=== PATIENT | male | born 1960 | race Caucasian/White ===

== ENCOUNTER 2017-10-06 18:10 | Inpatient (IN) | payer OTHER ==
[~2017-10-06] VITALS: Ht 172.7 cm; Wt 122.5 kg
[~2017-10-06 18:10] MED LIST: ALDACTONE25 MG PO; ALLOPURINOL 10100 M1 PO; ASPIRIN81 M2 PO; ATORVASTATIN CA40 MG PO; ATORVASTATIN CA80 MG PO; BAYER CHEWABLE81 MG PO; CARVEDILOL12.5 MG PO; CARVEDILOL3.125 MG PO; CARVEDILOL6.25 MG PO; COLACE100 MG PO; COUMADIN 5 MG TA5 M1 PO; COZAAR 50 MG TA50 M2 PO; EFFIENT10 MG PO; ELIQUIS5 MG PO; ENOXAPARIN100 MG/11 SUBQ; ENOXAPARIN150 MG/11 SUBQ; FLORANEX TABLE1 EACH PO; INVOKANA300 MG PO; LEVAQUIN 500 M500 M2 PO; LEVAQUIN 750 M750 MG PO; LISINOPRIL10 MG PO; MEPHYTON 5 MG TA5 M1 PO; METOPROLOL SUCC25 M1 PO; MIRALAX17 GM PO; MUCINEX TA600 MG/TA2 PO; NICOTINE TRANSD14 M1 TD; NITROGLYCERIN0.4 MG SL; PACERONE 200 M200 M1 PO; PLAVIX 75 MG TA75 M1 PO; PREDNISONE 10 M10 MG PO; PREDNISONE 20 M20 M1 PO; PROAIR HFA8.5 GM INH; PROTONIX 20 MG20 M1 PO; TYLENOL325 MG PO; VENTOLIN HFA 1818 GM INH; ZESTRIL10 MG PO; ZPAK PO
[2017-10-06 18:18] VITALS: BP 137/72
[2017-10-06 19:41] LABS: INFLUENZA A ANTIGEN None Detected (None Detect); INFLUENZA B ANTIGEN None Detected (None Detect)
[2017-10-06] MEDS ORDERED: PROAIR HFA8.5 GM INH (19:47)
[2017-10-06] MEDS ORDERED: LEVAQUIN 500 M500 M2 PO (19:47)
[2017-10-06] MEDS ORDERED: PREDNISONE 20 M20 MG PO (19:47)
[2017-10-06 20:17] LABS: HEMATOCRIT 44.8 % (42.0-52.0); HEMOGLOBIN 15.5 gm/dL (14.0-18.0); MCH 31.3 pg (26.0-34.0); MCHC 34.7 g/dL (28.0-37.0); MCV 90.4 fL (80.0-100.0); MPV 8.5 fl. (7.2-11.1); NUCLEATED RBCS 0 /100WBC; PLATELET COUNT* 154 thou/uL (150-400); RBC 4.96 mil/uL (4.50-6.00); WBC 6.5 thou/uL (4.0-11.0)
[2017-10-06 20:30] LABS: ANION GAP 9 mmol/L (7-16); BUN 16 mg/dL (7-18); CALCIUM 8.6 mg/dL (8.5-10.1); CHLORIDE 101 mmol/L (98-107); CO2 27 mmol/L (21-32); CREATININE 1.3 mg/dL (0.6-1.3); GLUCOSE 115 mg/dL (70-99); POTASSIUM 3.8 mmol/L (3.5-5.1); SODIUM 137 mmol/L (136-145)
[2017-10-06 20:37] LABS: ABSOLUTE LYMPHOCYTES 0.3 thou/uL (0.8-5.3); ABSOLUTE MONOCYTES 0.7 thou/uL (0.0-1.2); ABSOLUTE NEUTROPHILS 5.6 thou/uL (1.6-8.1); ATYPICAL LYMPHS 2 %; PLATELET ESTIMATE ADEQUATE
[2017-10-06 20:42] LABS: ALBUMIN 3.5 g/dL (3.4-5.0); ALKALINE PHOSPHATASE 65 U/L (46-116); NT-PRO BRAIN NAT PEPTIDE 1239 pg/mL (<300); SGOT 21 U/L (15-37); SGPT 19 U/L (30-65); TOTAL BILIRUBIN 0.5 mg/dL (<0.1-1.0); TOTAL PROTEIN 7.2 g/dL (6.4-8.2); TROPONIN-I LEVEL <0.06 ng/mL (<0.06)
[2017-10-06 22:03] VITALS: BP 95/45
[2017-10-06 22:30] VITALS: BP 107/52
[2017-10-07 03:35] VITALS: BP 94/45
--- NOTE | 2017-10-07 06:01 | NUR ---
PATIENT ARRIVED ON FLOOR FROM ER ABOUT 5. PATIENT ADMISSION HISTORY AND ASSESSMENT WAS COMPLETED CHARTED. IV FLUIDS WERE STARTED AT 100 ML/HR. PATIENT HAS BEEN AFEBRILE SINCE ARRIVAL TO FLOOR. PATIENT IS ON OXYGEN AT 3L SATTING 94-95%. WILL CONTINUE TO MONITOR.
[2017-10-07 07:50] VITALS: BP 118/76
--- NOTE | 2017-10-07 14:21 | NUR ---
CM ASSESSMENT: Pt is A&O. Resides at home with his sig other. Independent with ADLs, continues to work FT outside of the home. Hx of home o2. No hx of HH or SNF. Supportive family that is invovled in POC. Dr Mitchell wrote for a home neb, faxed referral to D[facility] at [facility], they will deliver tomorrow. Updated nurse. Anticipate dc to home tomorrow. Following.
[2017-10-07 14:23] VITALS: BP 118/76
[2017-10-07 15:53] VITALS: BP 100/53
--- NOTE | 2017-10-07 17:44 | NUR ---
PATIENT A&OX4, ON 3L O2 VIA NC, IV RIGHT AC FLUIDS INFUSSING WITH IV ABX. UP AD CARLTON, STEADY GIAT. NO C/O PAIN/N/V. FLU SHOT GIVEN THIS A.M. NO OTHER CONCERNS AT THIS TIME. APPROPRIATE AND COOPORATIVE WITH CARE.
[2017-10-08] VITALS: BP 110/62
[2017-10-08 04:39] LABS: ABSOLUTE LYMPHOCYTES 0.8 thou/uL (0.8-5.3); ABSOLUTE MONOCYTES 0.4 thou/uL (0.0-1.2); ABSOLUTE NEUTROPHILS 10.6 thou/uL (1.6-8.1); BASOPHILS 0.2 %; EOSINOPHILS 0.1 %; HEMATOCRIT 45.4 % (42.0-52.0); HEMOGLOBIN 15.2 gm/dL (14.0-18.0); MCH 30.9 pg (26.0-34.0); MCHC 33.4 g/dL (28.0-37.0); MCV 92.4 fL (80.0-100.0); MONOCYTES 3.6 %; MPV 8.8 fl. (7.2-11.1); NUCLEATED RBCS 0 /100WBC; PLATELET COUNT* 135 thou/uL (150-400); POLYS 89.1 %; RBC 4.92 mil/uL (4.50-6.00); RDW-CV 13.7 % (10.5-14.5); WBC 11.9 thou/uL (4.0-11.0)
[2017-10-08 05:11] LABS: CALCIUM 8.7 mg/dL (8.5-10.1); MAGNESIUM 2.3 mg/dL (1.8-2.4); POTASSIUM 4.3 mmol/L (3.5-5.1); TOTAL BILIRUBIN 0.2 mg/dL (<0.1-1.0); TOTAL PROTEIN 6.8 g/dL (6.4-8.2)
--- NOTE | 2017-10-08 06:04 | NUR ---
PATIENT SLEPT MOST OF THE NIGHT. IV FLUIDS CONTINUE AT 100 ML/HR. PATIENT REMAINS ON OXYGEN AT 1.5L SATTING 93%. PATIENT IS POSSIBLY GOING HOME TODAY. WILL CONTINUE TO MONITOR.
[2017-10-08 08:05] VITALS: BP 121/71
--- NOTE | 2017-10-08 16:31 | NUR ---
PATIENT A&OX4, ON 1.5L O2 VIA NC, IV RIGHT AC SALINE LOCK WITH ABX. UP AD CARLTON, STEADY GAIT. NO C/O PIAN/N/V. NO OTHER CONCERNS AT THIS TIME. APPROPRIATE AND COOPORATIVE WITH CARE.
[2017-10-08 16:34] VITALS: BP 103/53
[2017-10-08 23:38] VITALS: BP 114/54
[2017-10-09 04:36] LABS: HEMATOCRIT 46.2 % (42.0-52.0); HEMOGLOBIN 15.6 gm/dL (14.0-18.0); MCH 30.9 pg (26.0-34.0); MCHC 33.7 g/dL (28.0-37.0); MCV 91.8 fL (80.0-100.0); MPV 8.6 fl. (7.2-11.1); RBC 5.03 mil/uL (4.50-6.00); RDW-CV 14.1 % (10.5-14.5); WBC 14.2 thou/uL (4.0-11.0)
[2017-10-09 04:58] LABS: ALBUMIN 3.2 g/dL (3.4-5.0); CALCIUM 8.8 mg/dL (8.5-10.1); CREATININE 1.1 mg/dL (0.6-1.3); TOTAL BILIRUBIN 0.3 mg/dL (<0.1-1.0); TOTAL PROTEIN 6.6 g/dL (6.4-8.2)
--- NOTE | 2017-10-09 05:40 | NUR ---
PATIENT SLEPT MOST OF THE NIGHT. PATIENT IS NOW ON ROOM AIR. IV REMAINS SALINE LOCKED. PATIENT IS POSSIBLSY GOING HOME TODAY. WILL CONTINUE TO MONITOR.
[2017-10-09 09:00] VITALS: BP 127/61
--- NOTE | 2017-10-09 11:47 | NUR ---
Nutrition: Pt seen for BMI >40. Possible discharge home today. Pt stated his appetite/intake are good. He relaly likes the food. He takes invokana and it keeps "my sugars 100-150." Wt: 270# is his usual wt. Low nutrition risk.
[2017-10-09] MEDS ORDERED: DUONEB 2.5-0.5 M3 ML INH (12:27)
[2017-10-09] MEDS ORDERED: DOXYCYCLINE 10100 MG PO (12:28)
[2017-10-09] MEDS ORDERED: PREDNISONE 10 M10 MG PO (12:29)
[2017-10-09] MEDS ORDERED: NEBULIZER MISCELL (12:31)
[2017-10-09 12:41] VITALS: BP 118/76
--- NOTE | 2017-10-09 13:31 | NUR ---
PATIENT HAS BEEN ALERT ORIENTED TODAY VERY PLEASANT, UP AD CARLTON IN ROOM. VITAL SIGNS STABLE ON ROOM AIR. IV REMOVED TODAY DUE TO DISCHARGE. PATIENT IS BEING DISCHARGED TO HOME, DISCHARGE INSTRUCTIONS GIVEN, PRESCRIPTIONS GIVEN AND QUESTIONS ANSWERED FOR PATIENT. LEFT VIA WHEEL CHAIR TO HOME.
== END 2017-10-09 13:30 | disposition home or self-care (01) | DRG 177 ==
LOC: M.ERS 18:10 → M.3W 20:25 → M.TBA-ER 20:25 → M.3W 22:13
PROVIDERS: Emergency Medicine; Physician Assistant; ADMIT Internal Medicine
DX: J15.6 Pneumonia due to other Gram-negative bacteria (principal); J96.01 Acute respiratory failure with hypoxia; I42.9 Cardiomyopathy, unspecified; J44.1 Chronic obstructive pulmonary disease with (acute) exacerbation; J44.0 Chronic obstructive pulmonary disease with (acute) lower respiratory infection; E78.00 Pure hypercholesterolemia, unspecified; M10.9 Gout, unspecified; I25.2 Old myocardial infarction; Z95.5 Presence of coronary angioplasty implant and graft; Z87.442 Personal history of urinary calculi; Z95.0 Presence of cardiac pacemaker; Z86.711 Personal history of pulmonary embolism; Z87.891 Personal history of nicotine dependence; Z79.82 Long term (current) use of aspirin; Z79.899 Other long term (current) drug therapy; Z23 Encounter for immunization

== ENCOUNTER 2018-01-08 09:02 | Emergency (ER) | payer OTHER ==
[~2018-01-08] VITALS: Ht 172.7 cm; Wt 122.5 kg
[~2018-01-08 09:02] MED LIST changes: +DOXYCYCLINE 10100 MG PO; +DUONEB 2.5-0.5 M3 ML INH; +NEBULIZER MISCELL; +PREDNISONE 20 M20 MG PO
[2018-01-08 09:28] LABS: ABSOLUTE BASOPHILS 0.1 thou/uL (0.0-0.2); ABSOLUTE EOSINOPHILS 0.2 thou/uL (0.0-0.7); ABSOLUTE LYMPHOCYTES 1.9 thou/uL (0.8-5.3); ABSOLUTE MONOCYTES 0.7 thou/uL (0.0-1.2); ABSOLUTE NEUTROPHILS 6.8 thou/uL (1.6-8.1); EOSINOPHILS 1.8 %; HEMATOCRIT 48.2 % (42.0-52.0); HEMOGLOBIN 16.6 gm/dL (14.0-18.0); LYMPHOCYTES 19.8 %; MCH 31.7 pg (26.0-34.0); MCHC 34.5 g/dL (28.0-37.0); MCV 91.9 fL (80.0-100.0); MONOCYTES 7.2 %; MPV 8.1 fl. (7.2-11.1); NUCLEATED RBCS 0 /100WBC; PLATELET COUNT* 205 thou/uL (150-400); POLYS 70.2 %; RBC 5.25 mil/uL (4.50-6.00); RDW-CV 13.5 % (10.5-14.5); WBC 9.7 thou/uL (4.0-11.0)
[2018-01-08 09:39] LABS: CALCIUM 9.2 mg/dL (8.5-10.1); CREATININE 1.2 mg/dL (0.6-1.3); POTASSIUM 3.3 mmol/L (3.5-5.1)
[2018-01-08 09:43] LABS: ALBUMIN 3.9 g/dL (3.4-5.0); TOTAL BILIRUBIN 0.8 mg/dL (<0.1-1.0); TOTAL PROTEIN 7.4 g/dL (6.4-8.2)
[2018-01-08] MEDS ORDERED: PERCOCET 5-3251 EACH PO (09:56)
[2018-01-08] MEDS ORDERED: CIPROFLOXACIN500 M1 PO (09:56)
[2018-01-08 10:06] VITALS: BP 122/67
--- NOTE | 2018-01-08 16:20 | EKG ---
[place] [address] ELECTROCARDIOGRAM REPORT Name: JESSICA KOENIG Room: [facility] [facility] [id number] Admission: 01/08/18 Attend Phys: Discharge: 01/08/18 Date of : 64 Report #: [id number] THIS REPORT FOR: //name// ED Test Date: 2018-01-08 Test Time: 09:12:16 Pat Name: JESSICA KOENIG Department: Room: Gender: M Marketing Sales Manager: Teddy SEGOVIA : 1960 Requested By: Kal Jj Order Number: [id number] MD: Chriss Dutton Measurements Intervals [place] Rate: 76 P: 52 VT: 190 QRS: 34 QRSD: 100 T: 230 QT: 410 QTc: 462 Interpretive Statements Sinus rhythm Ventricular premature complex Probable lateral infarct, age indeterminate Anterior infarct, old Compared to ECG 03/04/2017 07:30:11 Ventricular premature complex(es) now present Myocardial infarct finding still present Electronically Signed On 01-08-2018 16:19:53 CDT by Chriss Dutton [email or web address] <ELECTRONICALLY SIGNED> By: Chriss Dutton MD, [facility] 01/08/18 1619 0912 0912 Chriss Dutton MD, [facility] /EPI
== END 2018-01-08 10:07 | disposition home or self-care (01) ==
LOC: M.ERS 09:02
PROVIDERS: Family Medicine
DX: N20.0 Calculus of kidney (principal); E78.00 Pure hypercholesterolemia, unspecified; M10.9 Gout, unspecified; F17.210 Nicotine dependence, cigarettes, uncomplicated; Z87.442 Personal history of urinary calculi; Z86.711 Personal history of pulmonary embolism

== ENCOUNTER 2018-02-13 00:41 | Inpatient (IN) | payer OTHER ==
[2018-02-13] VITALS (17 sets, daily range): BP systolic 88–141; BP diastolic 44–96
[~2018-02-13] VITALS: Ht 177.8 cm; Wt 126.1 kg
[~2018-02-13 00:41] MED LIST changes: +CIPROFLOXACIN500 M1 PO; +PERCOCET 5-3251 EACH PO
[2018-02-13 01:08] LABS: ABSOLUTE EOSINOPHILS 0.3 thou/uL (0.0-0.7); ABSOLUTE MONOCYTES 0.9 thou/uL (0.0-1.2); ABSOLUTE NEUTROPHILS 7.4 thou/uL (1.6-8.1); BASOPHILS 0.1 %; EOSINOPHILS 2.6 %; HEMATOCRIT 51.8 % (42.0-52.0); HEMOGLOBIN 17.4 gm/dL (14.0-18.0); LYMPHOCYTES 31.6 %; MCH 30.6 pg (26.0-34.0); MCHC 33.6 g/dL (28.0-37.0); MCV 91.1 fL (80.0-100.0); MONOCYTES 7.2 %; MPV 8.5 fl. (7.2-11.1); NUCLEATED RBCS 0 /100WBC; PLATELET COUNT* 249 thou/uL (150-400); POLYS 58.5 %; RBC 5.69 mil/uL (4.50-6.00); RDW-CV 13.6 % (10.5-14.5); WBC 12.6 thou/uL (4.0-11.0)
[2018-02-13 01:10] LABS: CALCIUM 9.1 mg/dL (8.5-10.1); CREATININE 1.1 mg/dL (0.6-1.3); POTASSIUM 3.6 mmol/L (3.5-5.1)
[2018-02-13 01:13] LABS: INR 1.2; PROTIME 11.5 Seconds (9.20-11.50)
[2018-02-13 01:23] LABS: ALBUMIN 3.6 g/dL (3.4-5.0); TOTAL BILIRUBIN 0.6 mg/dL (<0.1-1.0); TROPONIN-I LEVEL 0.13 ng/mL (<0.06)
--- NOTE | 2018-02-13 02:35 | NUR ---
HANS TAKEN TO BACTERIOLOGIST MEDICAL- HEPARIN INFUSING
--- NOTE | 2018-02-13 02:36 | NUR ---
STEMI CALLED IN ED. SEE FLOW SHEET.
--- NOTE | 2018-02-13 06:37 | NUR ---
PT. SHEATH PULLED AT 0545, SITE REMAINS CLEAN/DRY/INTACT. PT. HAS NOT COMPLAINED OF CHEST PAIN SINCE ARRIVING TO UNIT AT 0355. NORMAL SALINE REMAINS INFUSING AT 100CC/HR. PT. INSTRUCTED TO KEEP RIGHT LEG STRAIGHT UNTIL NOON. WILL CONTINUE TO MONITOR.
--- NOTE | 2018-02-13 07:47 | CON ---
[address] [address] CONSULTATION Name: JESSICA KOENIG Room: [address] IN ..#: [id number] Admission: 02/13/18 Attend Phys: Jeniffer Mitchell MD Discharge: Date of : 64 Report #: [id number] THIS REPORT FOR: //name// CC: Chriss Rogers DATE OF SERVICE: 02/13/2018 INDICATION: Chest pain. CARDIOLOGY CONSULTATION INDICATION: Chest pain. HISTORY OF PRESENT ILLNESS: This is a 57-year-old gentleman, with a history of CAD, ischemic cardiomyopathy, ICD, presenting with acute onset of substernal chest pain. It occurred approximately 30 minutes prior to presentation to the ER. It was nonradiating, associated with shortness of breath and diaphoresis. In the ER, he was noted to have a Q-wave in V2 with ST elevation. There was ST segment depressions in the inferolateral leads. He was given aspirin and nitroglycerin with partial relief of symptoms. He denies any history of fever, cough, nausea or diarrhea. PAST MEDICAL HISTORY: History of AK with stent placement. Last cardiac catheterization in 2017 revealed patent stents in the LAD and mid left circumflex with mild restenosis. The RCA is chronically occluded and the distal vessels filled the collateral circulation. The distal circumflex is occluded as well. Has a history of ischemic cardiomyopathy with prior ICD placement, history of hypertension, diabetes mellitus and noncompliance. ALLERGIES: None. MEDICATIONS: Stopped taking all of his meds including his diabetic medications. SOCIAL HISTORY: Resumed tobacco use, 1 pack per day. FAMILY HISTORY: Negative for premature CAD. REVIEW OF SYSTEMS: Ten-point review of systems performed. Only the pertinent positives and negatives are described in the HPI. PHYSICAL EXAMINATION: VITAL SIGNS: Blood pressure is 140/80, heart rate is 115 beats per minute. GENERAL APPEARANCE: This is an overweight male, in mild distress. EYES: Normocephalic. Sclerae are anicteric. ENT: [place] [address] CONSULTATION Name: JESSICA KOENIG Room: [address] IN [facility].#: [id number] Admission: 02/13/18 Attend Phys: Jeniffer Mitchell MD Discharge: Date of : 64 Report #: [id number] NECK: Supple. LUNGS: Diminished breath sounds diffusely. CARDIAC: S1, S2 positive. Distant heart sounds, 1/6 systolic murmur. ABDOMEN: Soft, nontender. EXTREMITIES: No cyanosis. Trace edema. ECG reveals sinus tachycardia, Q-waves with ST elevation in V2, T-wave inversions in the inferolateral leads. LABORATORY VALUES: Initial troponin is minimally elevated. ASSESSMENT AND PLAN: 1. Acute coronary syndrome/non-ST elevation myocardial infarction, the patient with persistent symptoms even after treatment with heparin, nitro and aspirin. He will be taken to the cardiac catheterization lab for emergent cardiac catheterization. 2. Noncompliance. The patient stopped taking all of his medications several months ago. He states that he felt better and decided not to take his medications. 3. Tobacco use, complete smoking cessation is discussed. 4. Ischemic cardiomyopathy, may have a component. We will follow for now. 5. Hypertension, will need resumption of medications including carvedilol and JOSE MIGUEL inhibitor. 6. Diabetes mellitus, as per PCP. <ELECTRONICALLY SIGNED> By: Ab Mckeon MD 02/13/18 0747 0245 0329Ab Mckeon MD /nt
[2018-02-13 08:24] LABS: HEMATOCRIT 46.6 % (42.0-52.0); HEMOGLOBIN 15.8 gm/dL (14.0-18.0); MCHC 33.8 g/dL (28.0-37.0); MCV 91.5 fL (80.0-100.0); MPV 8.6 fl. (7.2-11.1); RBC 5.09 mil/uL (4.50-6.00); RDW-CV 13.4 % (10.5-14.5); WBC 9.1 thou/uL (4.0-11.0)
--- NOTE | 2018-02-13 09:00 | NUR ---
PATIENT AXOX4, ASSESSMENT CHARTED. REPORTS NO CHEST PAIN, NAUSEA OR SHORTNESS OF AIR. BEDREST TILL 1200, GROIN SITE CLEAN DRY AND INTACT. ALL QUESTIONS ANSWERED. BED IN LOWEST POSITION, LEARNING SOLUTIONS SPECIALIST IN PLACE, WILL CONTINUE TO MONITOR.
[2018-02-13 09:19] LABS: ALBUMIN 3.3 g/dL (3.4-5.0); ALKALINE PHOSPHATASE 63 U/L (46-116); ANION GAP 10 mmol/L (7-16); BUN 7 mg/dL (7-18); CALCIUM 8.2 mg/dL (8.5-10.1); CHLORIDE 106 mmol/L (98-107); CHOLESTEROL 198 mg/dL (<200); CO2 24 mmol/L (21-32); CREATININE 0.9 mg/dL (0.6-1.3); GLUCOSE 109 mg/dL (70-99); HDL CHOLESTEROL 22 mg/dL (>40); LDL CHOLESTEROL 120 mg/dL (<100); MAGNESIUM 1.9 mg/dL (1.8-2.4); POTASSIUM 3.9 mmol/L (3.5-5.1); SGOT 50 U/L (15-37); SGPT 27 U/L (30-65); SODIUM 140 mmol/L (136-145); TOTAL BILIRUBIN 0.5 mg/dL (<0.1-1.0); TOTAL PROTEIN 6.8 g/dL (6.4-8.2); TRIGLYCERIDE 282 mg/dL (<150); VLDL 56 mg/dL (<40)
[2018-02-13 09:22] LABS: SERUM ASSESSMENT Clear
[2018-02-13 09:23] LABS: TROPONIN-I LEVEL 8.52 ng/mL (<0.06)
--- NOTE | 2018-02-13 10:38 | EKG ---
[place] [address] ELECTROCARDIOGRAM REPORT Name: JESSICA KOENIG Room: [address] IN [facility]#: [id number] Admission: 02/13/18 Attend Phys: Jeniffer Mitchell MD Discharge: Date of : 64 Report #: [id number] THIS REPORT FOR: //name// [facility] ED Test Date: 2018-02-13 Test Time: 00:45:39 Pat Name: JESSICA KOENIG Department: Room: Gender: M Telesales Consultant: : 1960 Requested By: Torrie Rogers Order Number: [id number] MD: Vidal Gallo Measurements Intervals [place] Rate: 115 P: 65 [place]: 170 QRS: 51 QRSD: 105 T: 239 QT: 331 QTc: 458 Interpretive Statements Sinus tachycardia Ventricular premature complex Probable anteroseptal infarct, recent Lateral leads are also involved Baseline wander in lead(s) II,III,aVR,aVL,aVF,V3 Compared to ECG 01/08/2018 09:12:16 Sinus rhythm no longer present Myocardial infarct finding still present Electronically Signed On 02-13-2018 10:38:30 CDT by Vidal Gallo [email or web address] <ELECTRONICALLY SIGNED> By: Vidal Gallo MD, FACC 02/13/18 1038 0045 0045 Vidal Gallo MD, FAC /EPI
--- NOTE | 2018-02-13 10:38 | EKG ---
[place] [address] ELECTROCARDIOGRAM REPORT Name: LIBERTYJESSICA Chaney Room: [address] ADM IN .R.#: [id number] Admission: 02/13/18 Attend Phys: Jeniffer Mitchell MD Discharge: Date of : 64 Report #: [id number] THIS REPORT FOR: //name// [facility] Test Date: 2018-02-13 Test Time: 04:29:02 Pat Name: JESSICA KOENIG Department: Room: [address] Gender: M Kiln Fireman: JANI : 1960 Requested By: Ab Mckeon Order Number: [id number] Reading MD: Vidal Gallo Measurements Intervals [place] Rate: 69 P: 43 [place]: 172 QRS: 44 QRSD: 103 T: 175 QT: 436 QTc: 467 Interpretive Statements Sinus rhythm Probable lateral infarct, age indeterminate Anterior infarct, old Compared to ECG 01/08/2018 09:12:16 Ventricular premature complex(es) no longer present Myocardial infarct finding still present Electronically Signed On 02-13-2018 10:38:45 CDT by Vidal Gallo [email or web address] <ELECTRONICALLY SIGNED> By: Vidal Gallo MD, FACC 02/13/18 1038 0429 0429 Vidal Gallo MD, FAC /EPI
--- NOTE | 2018-02-13 10:38 | EKG ---
[place] [address] ELECTROCARDIOGRAM REPORT Name: JESSICA KOENIG Room: [address] IN [facility]#: [id number] Admission: 02/13/18 Attend Phys: Jeniffer Mitchell MD Discharge: Date of : 64 Report #: [id number] THIS REPORT FOR: //name// [facility] ED Test Date: 2018-02-13 Test Time: 01:41:01 Pat Name: JESSICA KOENIG Department: Room: Gender: Rhinestone Setter: CANDELARIO : 1960 Requested By: Torrie Rogers Order Number: [id number] MD: Vidal Gallo Measurements Intervals [place] Rate: 89 P: 52 NM: 166 QRS: 35 QRSD: 106 T: 213 QT: 386 QTc: 470 Interpretive Statements Sinus rhythm Probable lateral infarct, age indeterminate Anterior infarct, age indeterminate Baseline wander in lead(s) II Compared to ECG 01/08/2018 09:12:16 Ventricular premature complex(es) no longer present Myocardial infarct finding still present Electronically Signed On 02-13-2018 10:38:34 CDT by Vidal Gallo [email or web address] <ELECTRONICALLY SIGNED> By: Vidal Gallo MD, FACC 02/13/18 1038 014 0141 Vidal Gallo MD, FACC /EPI
--- NOTE | 2018-02-13 16:20 | NUR ---
DR NROTH AT BEDSIDE, OK TO TRANSFER PATIENT TO TELE, INCREASE ACTIVITY, SHOULD DISCHARGE CLOSER TO MONDAY.
--- NOTE | 2018-02-13 18:05 | CARD ---
[address] [address] CARDIAC CATH REPORT Name: LIBERTYJESSICA Shiv Room: [address] IN [facility]#: [id number] Admission: 02/13/18 Attend Phys: Jeniffer Mitchell MD Discharge: Date of : 64 Report #: [id number] THIS REPORT FOR: //name// APPROVED REPORT Study performed: 02/13/2018 02:11:01 Patient Details Patient Status: ED Room #: The patient is a 57 year-old male Event Personnel Ab Mckeon Disposal Plant Operator, Sharla Mora RN Child Care Coordinator, Aylin Colindres Monitor, Angela Cooney RTAlka Scrub Procedures Performed Art Access - R femoral artery* , Right transradial approachLeft Heart Cath w/or w/o Coronaries [id number] [facility] w/wo Plasty Single LAD [id number] Indication Non-STEMI , Dyspnea, Unstable angina , Chest pain Risk Factors Obesity, Hypercholesterolemia, Coronary Artery DiseaseHypertension, Diabetes Tobacco History (), The patient stopped taking all of his medications for the past several months. Previous Procedures/Diagnoses Previous PCI, Previous MO Procedure Narrative The patient was brought emergently to the Cardiac Catheterization Laboratory and was prepped and draped in a sterile manner. The right femoral was infiltrated with 2% Lidocaine subcutaneous anesthesia. A 6fr Ultimum Sheath sheath was inserted into the right femoral artery. Coronary angiography was performed using coronary diagnostic catheters. The right coronary system was accessed and visualized with a 6fr JR 4 catheter. The left coronary system was accessed and visualized with a 6fr JL 4 catheter. Left ventricular/Aortic Valve gradient assessed via catheter pullback. The patient tolerated the procedure well and there were no complications associated with the procedure. Fluoro Time: 9.8 [place] [address] CARDIAC CATH REPORT Name: JESSICA KOENIG Room: [address]#: [id number] Admission: 02/13/18 Attend Phys: Jeniffer Mitchell MD Discharge: Date of : 64 Report #: [id number] Dose: DAP [id number] cGycm2 2298.63 mGy Contrast Type and Amount: Visipaque 190 ml Diagnostic Cath Left Main Patent vessel, no flow-limiting lesions. LAD There is a severe occlusion at the proximal segment, at the edge of a previously placed stent. Diagonal 1 Chronically occluded, unchanged from prior procedures Circumflex Codominant vessel with 100% occlusion in the distal segment, unchanged from prior procedures. OM1 Moderate size caliber vessel with a severe stenosis at the ostium, 70%. Consider staged PCI procedure versus medical therapy. Right Coronary Total occlusion in the mid segment, unchanged from prior procedures. R PDA Filled via collateral circulation from the left coronary artery. Left Ventriculography Left Ventriculography was not performed. An LVEDP was measured and there is no gradient across the outflow tract. Hemodynamics The aortic pressure is 87/59 mmHg with a mean of mmHg. The left ventricular pressure is 94/1 mmHg with a mean of mmHg. The left ventricular end diastolic pressure is 12 mmHg. PCI Technique Lesion Anticoagulation was achieved with Angiomax. Patient was preloaded with Brillinta. Percutaneous coronary intervention was performed on the proximal left anterior descending artery segment. The lesion stenosis prior to intervention was 95% with JOSE 3 flow. A XB 3.5 Guide Catheter was used to engage the ostium. A Roamer: Luge Wire 180 Interventional Guidewire was used to cross the lesion. BALLOON DILATION A Balloon catheter Trek RX 2.5 X 12 was inserted and inflated up to 8.00atm for 8seconds. Additional Inflation: 10.00atm for 5seconds. Additional Inflation: 16.00atm for 7seconds. STENT DEPLOYMENT A drug-eluting stent Xience Alpine RX 3.0X18 was inserted and inflated up to 16.00atm for 24seconds. POST STENT DEPLOYMENT [place] [address] CARDIAC CATH REPORT Name: JESSICA KOENIG Room: [address] IN .R.#: [id number] Admission: 02/13/18 Attend Phys: Jeniffer Mitchell MD Discharge: Date of : 64 Report #: [id number] A Balloon catheter NC Trek RX 3.0 X 12 was inserted and inflated up to 12.00atm for 14seconds. Additional Inflation: 18.00atm for 18seconds. Final angiography reveals 5 % stenosis with JOSE 3 flow. Conclusion 1. Successful insertion of a drug-eluting stent into the severe occlusion in the proximal LAD. 2. Severe stenosis at the ostium of OM1, medical therapy versus staged angioplasty. 3. Chronically occluded distal left circumflex and mid RCA, with collateral filling. Unchanged from prior procedures. 4. History of severe ischemic cardiomyopathy, ICD and noncompliance with medical therapy. 5. Recommend dual antiplatelet therapy. <ELECTRONICALLY SIGNED> By: Ab Mckeon MD 02/13/181804 04 04Ab Mckeon MD /INF
--- NOTE | 2018-02-13 18:14 | NUR ---
PATIENT IS PROGRESSING WELL TOWARDS GOALS. INCREASING ACTIVITY, SITTING EDGE OF BED TO EAT DINNER, TOLERATING MEALS, NO CHEST PAIN, NAUSEA OR SHORTNESS OF AIR. SUGARS ARE MAINTAINED UNDER 150S. PATIENT IS GOING BY WHEELCHAIR TO ROOM 224. REPORT GIVEN TO LIAM RN, ALL QUESTIONS ANSWERED. ALL BELONGINGS PACKED AND SENT WITH PATIENT ALONG WITH MEDS AND CHART.
[2018-02-13 18:43] LABS: URINE BILIRUBIN NEGATIVE (Negative); URINE BLOOD NEGATIVE (Negative); URINE CLARITY CLEAR; URINE COLOR YELLOW; URINE GLUCOSE-RANDOM NEGATIVE (Negative); URINE KETONES NEGATIVE (Negative); URINE LEUKOCYTES-REFLEX NEGATIVE (Negative); URINE NITRITE-REFLEX NEGATIVE (Negative); URINE PROTEIN NEGATIVE (Negative); URINE SPECIFIC GRAVITY 1.025 (1.005-1.030); URINE UROBILINOGEN 0.2 E.U./dl (0.2-1.0)
--- NOTE | 2018-02-13 18:55 | NUR ---
PATIENT ARRIVED FROM ICU PER W/C THIS EVENING. PATIENT PLACED ON TELE MONITOR. VS TAKEN. PATIENT ORIENTED TO ROOM AND CALL LIGHT. PATIENT IS DANGLING ON THE SIDE OF THE BED AT THIS TIME. TELE SHOWS NSR. WILL REPORT TO CARDIAC/VASCULAR SONOGRAPHER.
[2018-02-14] VITALS (7 sets, daily range): BP systolic 92–117; BP diastolic 49–71
--- NOTE | 2018-02-14 03:39 | NUR ---
PATIENT IS RESTING IN BED. DENIES COMPLAINTS OF PAIN, DISCOMFORT, OR SOA. UP AD CARLTON TO BATHROOM ONLY. WILL CONT. WITH CURRENT PLAN OF CARE AT THIS TIME. NO SIGN OF DISTRESS.
--- NOTE | 2018-02-14 12:12 | NUR ---
ASSUMED CARE OF PATIENT AFTER REPORT THIS MORNING. PATIENT AWAKE, ALERT, AND ORIENTED APPROPRIATELY. PHYSICAL ASSESSMENT COMPLETED AND CHARTED. NO COMPLAINTS OF PAIN. BLOOD PRESSURE HYPOTENSIVE, OTHER VITAL SIGNS STABLE. OXYGEN SATURATION WITHIN NORMAL LIMITS ON ROOM AIR. GAVE AMIODARONE BUT HELD COREG THIS MORNING DUE TO BLOOD PRESSURE. RECHECKED BLOOD PRESSURE THIS AFTERNOON, WITHIN NORMAL LIMITS, GIVEN COREG. GIVEN OTHER SCHEDULED MEDICATIONS, SEE EMAR FOR DOCUMENTATION. PATIENT TRANSFERS AND AMBULATES INDEPENDENTLY IN ROOM WITHOUT DIFFICULTY. DRESSING TO CATH SITE AT RIGHT GROIN CLEAN, DRY, AND INTACT. NO S/S HEMATOMA. USES CALL LIGHT APPROPRIATELY, WITHIN REACH. SHOWERED THIS MORNING. DENIES NEEDS. NURSING WILL CONTINUE TO MONITOR.
--- NOTE | 2018-02-14 12:20 | NUR ---
MET WITH PT TO DISCUSS HOME SITUATION/DC PLANNING. PT LIVES WITH S/O, IS INDEPENDENT AND ACTIVE. DRIVES A SCHOOL BUS. HAS NEBULIZER BUT STATES DOENS'T USE IT. DENIES ANY DC NEEDS. CARDIAC REHAB NURSE SAW AND PT STATES HE HAD ED. WILL FOLLOW
--- NOTE | 2018-02-14 13:42 | 2DMMODE ---
[place] [address] 2 D/M-MODE ECHOCARDIOGRAM Name: JESSICA KOENIG Room: [address] IN [facility]#: [id number] Admission: 02/13/18 Attend Phys: Jeniffer Mitchell, Discharge: Date of : 64 Date of Service: 02/14/18 1342 Report #: [id number] THIS REPORT FOR: //name// APPROVED REPORT Study performed: 02/14/2018 11:08:31 EXAM: Comprehensive 2D, Doppler, and color-flow Echocardiogram Patient Location: In-Patient Room #: [facility] Status: routine BSA: 2.40 HR: 81 bpm BP: 92/61 mmHg Rhythm: NSR Other Information Study Quality: Good Indications Acute RI Pacemaker CAD Chest Pain 2D Dimensions LVEF(%): 26.77 (>50%) IVSd: 11.56 (7-11mm) LVOT Diam: 20.02 (18-24mm) LVDd: 60.21 mm PWd: 10.50 (7-11mm) Ascending Ao: 28.86 (22-36mm) LVDs: 52.58 (25-40mm) Aortic Root: 29.46 mm Betancourt's LVEF: 26.77 % Volumes Left Atrial Volume (Systole) LA ESV Index: 34.30 mL/m2 Aortic Valve AoV Peak Tony.: 1.57 m/s AO Peak Gr.: 9.87 mmHg LVOT Max P.06 mmHg AO Mean Gr.: 6.36 mmHg LVOT Mean P.48 mmHg LVOT Max V: 1.12 m/s AO V2 VTI: 30.16 cm LVOT Mean V: 0.72 m/s ALEX (VTI): 2.32 cm2 LVOT V1 VTI: 22.24 [place] [address] 2 D/M-MODE ECHOCARDIOGRAM Name: JESSICA KOENIG Room: [address] IN [facility]#: [id number] Admission: 02/13/18 Attend Phys: Jeniffer Mitchell, Discharge: Date of : 64 Date of Service: 02/14/18 1342 Report #: [id number] Mitral Valve E/A Ratio: 1.14 MV Decel. Time: 153.32 ms MV E Max Tony.: 1.05 m/s MV PHT: 44.46 ms MVA (PHT): 4.95 cm2 TDI E/Lateral E': 17.50 E/Medial E': 13.13 Medial E' Tony.: 0.08 m/s Lateral E' Tony.: 0.06 m/s Pulmonary Valve PV Peak Tony.: 1.09 m/s PV Peak Gr.: 4.73 mmHg Tricuspid Valve TR Peak Gr.: 37.35 mmHg RVSP: 42.00 mmHg Left Ventricle Left ventricle is mildly dilated. Regional wall motion abnormalities are noted with distal septal and anteroapical hypokinesis. There is normal left ventricular wall thickness. Left ventricular systolic function is moderately decreased. LVEF is 35-40%. The left ventricular diastolic function is normal. Right Ventricle The right ventricle is normal size. The right ventricular systolic function is normal. Atria The left atrium size is normal. The right atrium size is normal. Aortic Valve The aortic valve is normal in structure. No aortic regurgitation is present. There is no aortic valvular stenosis. Mitral Valve The mitral valve is normal in structure. Mild mitral regurgitation. No evidence of mitral valve stenosis. Tricuspid Valve The tricuspid valve is normal in structure. Trace tricuspid regurgitation. The RVSP is 40-45 [place] [address] 2 D/M-MODE ECHOCARDIOGRAM Name: JESSICA KOENIG Room: [address]#: [id number] Admission: 02/13/18 Attend Phys: Jeniffer Mitchell, Discharge: Date of : 64 Date of Service: 02/14/18 1342 Report #: [id number] Pulmonic Valve The pulmonary valve is normal in structure. There is no pulmonic valvular regurgitation. Great Vessels The aortic root is normal in size. IVC is normal in size and collapses with >50% inspiration Pericardium There is no pericardial effusion. <Conclusion> Left ventricle is mildly dilated. There is normal left ventricular wall thickness. Left ventricular systolic function is moderately decreased. LVEF is 35-40%. The left ventricular diastolic function is normal. The right ventricle is normal size. The left atrium size is normal. The aortic valve is normal in structure. The mitral valve is normal in structure. Mild mitral regurgitation. The tricuspid valve is normal in structure. IVC is normal in size and collapses with >50% inspiration There is no pericardial effusion. Regional wall motion abnormalities are noted with distal septal and anteroapical hypokinesis. <ELECTRONICALLY SIGNED> By: Sekou Ceballos MD, FACC 02/14/181341 41 41 Sekou Ceballos MD, FACC /INF
--- NOTE | 2018-02-14 17:42 | NUR ---
PATIENT REMAINS ALERT AND ORIENTED APPROPRIATELY. NO CHANGE IN STATUS. NO COMPLAINTS OF PAIN. REMAINS UP AD CARLTON. DENIES NEEDS AT THIS TIME. CALL LIGHT WITHIN REACH. NURSING WILL CONTINUE TO MONITOR.
[2018-02-15] VITALS: BP 105/56
[2018-02-15 04:00] VITALS: BP 117/65
--- NOTE | 2018-02-15 06:58 | NUR ---
PATIENT RESTED IN BED, NO ACUTE CHAGNES. PATIENT DID NOT SHOW SIGNS OF DISTRESS. FALL PRECAUTIONS IN PLACE, CALL LIGHT WITHIN REACH.
[2018-02-15 08:40] VITALS: BP 105/69
[2018-02-15 09:54] VITALS: BP 92/61
--- NOTE | 2018-02-15 10:11 | NUR ---
ASSUMED CARE OF PT THIS AM AROUND 0715- TELEVISION PRODUCER IN PLACE ORDERED, TRACING SR- UPON ASSESSMENT PT NOTED TO BE RESTING IN BED, WATCHING TV- PT A&O X4- CONTINENT OF BOWEL AND BLADDER- UP AD-CARLTON IN ROOM WITH STEADY GAIT NOTED- LCTA, RESP EVEN AND UN-LABORED- OCCASSIONAL NON-PRODUCTIVE COUGH REPORTED-VSS, O2 SAT 92% ON RA, REPORTED PER CRN TO BE 90-91% WITH AMBULATION IN HALLWAY-ABDOMEN SOFT/ROUND/NON-TENDER, BS X4 QUADS- PT REPORTS LAST BM 02/14/18- TRACE EDEMA NOTED TO BLE- IV NOTED TO LEFT AC AND LEFT HAND INTACT, AND SL- RIGHT GROIN INCISSION SIGHT C/D/I WITH DRESSING IN PLACE, NO HEMATOMA OR S/S INFECTION NOTED-GOOD PO INTAKE NOTED THIS AM WITH BREAKFAST- DENIES ANY C/O PAIN/DISCOMFORT AT THIS TIME- CALL LIGHT AND PERSONAL BELONGINGS WITH IN REACH- HOURLY ROUNDS IN PLACE R/T SAFETY/NEEDS- ALL NEEDS MET AT THIS TIME-WCTM
[2018-02-15] MEDS ORDERED: LIPITOR40 MG PO (10:54)
[2018-02-15] MEDS ORDERED: ASPIR 8181 MG PO (10:54)
[2018-02-15] MEDS ORDERED: CARVEDILOL3.125 MG PO (10:54)
[2018-02-15] MEDS ORDERED: LISINOPRIL5 MG PO (10:54)
--- NOTE | 2018-02-15 11:51 | NUR ---
ORDERS RECIVED THIS SHIFT FOR OKAY TO D/C HOME PER - IV TO LEFT AC AND LEFT HAND D/C'D PRIOR TO D/C ALONG WITH SHIPFITTER- RIGHT GROIN DRESSING REMOVED WITH BANDAIDE PLACED TO SIGHT- D/C TEACHING/EDUCATION ALONG [facility] SITE CARE COMMUNICATED TO PT WITH VERBAL UNDERSTANDING RECIEVED PER PT- WRITTEN SCRIPTS ALONG WITH EDUCATION PROVIDED TO PT PRIOR TO D/C- BELONGINGS PACKED AND ACCOUNTED FOR PER PT- PT CURRENLTY RESTING IN BED SIDE RECLINER WITH BELONGINGS AWAITING RIDE- ALL NEEDS MET AT THIS TIME-WCTM
--- NOTE | 2018-02-17 11:08 | NUR ---
PT.CALLED ,STATING HE WAS DISCHARGED ON 02/15 AND DID NOT RECEIVE 3 MEDS. CM CALLED PT.ON CELL. HE SAID THE MEDS WERE AMIODARONE,COREG,AND PLAVIX. VERIFIED DOSEAGES FROM DISCHARGE MEDICATION ORDERS. ORDERED THIS RN TO CALL IN THESE PRESCRIPTIONS. CALLED IN AMIODARONE 200MG PO BID #60,NO REFILLS, COREG 3.125MG PO BID #60,NO REFILLS, AND PLAVIX 75MG PO DAILY,#30,NO REFILLS TO [facility] [phone]. PT.SAID HE WOULD BE SEEING HIS MOTH EXTERMINATOR/PCP WITH IN THE MONTH.
== END 2018-02-15 12:20 | disposition home or self-care (01) | DRG 247 ==
LOC: M.CL 00:41 → M.ERS 00:41 → M.ICU 03:25 → M.TBA-ER 03:25 → M.ICU 03:36 → M.2W 18:33
PROVIDERS: Emergency Medicine; Internal Medicine Cardiovascular Disease; ADMIT Internal Medicine
PROC: 4A023N6 Measurement of Cardiac Sampling and Pressure, Right Heart, Percutaneous Approach (ICD-10-PCS; principal; 2018-02-13)
PROC: 027034Z Dilation of Coronary Artery, One Artery with Drug-eluting Intraluminal Device, Percutaneous Approach (ICD-10-PCS; principal; 2018-02-13)
PROC: B211YZZ Fluoroscopy of Multiple Coronary Arteries using Other Contrast (ICD-10-PCS; principal; 2018-02-13)
DX: I21.4 Non-ST elevation (NSTEMI) myocardial infarction (principal); I50.22 Chronic systolic (congestive) heart failure; I47.1 Supraventricular tachycardia; E78.00 Pure hypercholesterolemia, unspecified; E11.9 Type 2 diabetes mellitus without complications; F17.210 Nicotine dependence, cigarettes, uncomplicated; E66.01 Morbid (severe) obesity due to excess calories; I24.9 Acute ischemic heart disease, unspecified; M10.9 Gout, unspecified; E78.5 Hyperlipidemia, unspecified; I11.0 Hypertensive heart disease with heart failure; I25.2 Old myocardial infarction; Z95.5 Presence of coronary angioplasty implant and graft; Z87.442 Personal history of urinary calculi; Z95.0 Presence of cardiac pacemaker; Z86.711 Personal history of pulmonary embolism; Z68.39 Body mass index [BMI] 39.0-39.9, adult; Z91.14 Patient's other noncompliance with medication regimen; Z79.82 Long term (current) use of aspirin; Z79.899 Other long term (current) drug therapy; I25.10 Atherosclerotic heart disease of native coronary artery without angina pectoris; I25.5 Ischemic cardiomyopathy; Z91.19 Patient's noncompliance with other medical treatment and regimen

== ENCOUNTER 2018-10-30 23:51 | Emergency (ER) | payer OTHER ==
[~2018-10-30] VITALS: Ht 177.8 cm; Wt 122.5 kg
[~2018-10-30 23:51] MED LIST changes: +ASPIR 8181 MG PO; +LIPITOR40 MG PO; +LISINOPRIL5 MG PO
[2018-10-31 00:13] LABS: URINE BILIRUBIN NEGATIVE (Negative); URINE BLOOD 3+ (Negative); URINE CLARITY CLEAR; URINE COLOR YELLOW; URINE GLUCOSE-RANDOM NEGATIVE (Negative); URINE KETONES NEGATIVE (Negative); URINE LEUKOCYTES-REFLEX NEGATIVE (Negative); URINE NITRITE-REFLEX NEGATIVE (Negative); URINE PROTEIN NEGATIVE (Negative); URINE SPECIFIC GRAVITY >= 1.030 (1.005-1.030); URINE UROBILINOGEN 0.2 E.U./dl (0.2-1.0)
[2018-10-31 00:18] LABS: CASTS None Seen /LPF (None Seen); MUCUS 0-3 Light strn/LPF (None Seen); SQUAMOUS 0-3 Few /LPF (0-3)
[2018-10-31 00:19] LABS: CRYSTALS None Seen /LPF (None Seen); URINE RBC >20 Many /HPF (0-2); URINE WBC-REFLEX 0-5 Rare /HPF (0-5)
[2018-10-31] MEDS ORDERED: ZOFRAN ODT4 MG PO (01:18)
[2018-10-31] MEDS ORDERED: NORCO 7.5-3251 EACH PO (01:18)
[2018-10-31 01:29] VITALS: BP 104/61
== END 2018-10-31 01:29 | disposition home or self-care (01) ==
LOC: M.ERS 23:51
PROVIDERS: Emergency Medicine
DX: N20.0 Calculus of kidney (principal); R19.7 Diarrhea, unspecified; F17.210 Nicotine dependence, cigarettes, uncomplicated; E78.00 Pure hypercholesterolemia, unspecified; M10.9 Gout, unspecified; I42.9 Cardiomyopathy, unspecified; E11.9 Type 2 diabetes mellitus without complications; Z87.442 Personal history of urinary calculi; Z95.0 Presence of cardiac pacemaker

== ENCOUNTER 2020-01-21 05:42 | Emergency (ER) | payer OTHER ==
[~2020-01-21] VITALS: Ht 177.8 cm; Wt 118.4 kg
[~2020-01-21 05:42] MED LIST changes: +NORCO 7.5-3251 EACH PO; +ZOFRAN ODT4 MG PO
[2020-01-21] MEDS ORDERED: AMOXICILLIN 50500 MG PO (06:08)
[2020-01-21] MEDS ORDERED: TRAMADOL 50 MG50 MG PO (06:08)
[2020-01-21 06:12] VITALS: BP 150/100
== END 2020-01-21 06:18 | disposition home or self-care (01) ==
LOC: M.ERS 05:42
DX: K02.9 Dental caries, unspecified (principal); E11.9 Type 2 diabetes mellitus without complications; E78.00 Pure hypercholesterolemia, unspecified; M10.9 Gout, unspecified; F17.210 Nicotine dependence, cigarettes, uncomplicated; Z87.442 Personal history of urinary calculi; Z95.5 Presence of coronary angioplasty implant and graft

== ENCOUNTER 2020-01-25 05:54 | Emergency (ER) | payer OTHER ==
[~2020-01-25] VITALS: Ht 177.8 cm; Wt 127.0 kg
[~2020-01-25 05:54] MED LIST changes: +AMOXICILLIN 50500 MG PO; +TRAMADOL 50 MG50 MG PO
[2020-01-25 06:33] LABS: ABSOLUTE EOSINOPHILS 0.3 thou/uL (0.0-0.7); ABSOLUTE LYMPHOCYTES 2.7 thou/uL (0.8-5.3); ABSOLUTE MONOCYTES 0.9 thou/uL (0.0-1.2); ABSOLUTE NEUTROPHILS 5.3 thou/uL (1.6-8.1); EOSINOPHILS 3.3 %; HEMATOCRIT 46.5 % (42.0-52.0); HEMOGLOBIN 16.1 gm/dL (14.0-18.0); LYMPHOCYTES 28.9 %; MCH 31.5 pg (26.0-34.0); MCHC 34.6 g/dL (28.0-37.0); MCV 91.1 fL (80.0-100.0); MONOCYTES 9.7 %; MPV 8.3 fl. (7.2-11.1); NUCLEATED RBCS 0 /100WBC; PLATELET COUNT* 241 thou/uL (150-400); POLYS 58.1 %; RBC 5.11 mil/uL (4.50-6.00); RDW-CV 14.6 % (10.5-14.5); WBC 9.2 thou/uL (4.0-11.0)
[2020-01-25 06:36] LABS: CALCIUM 9.3 mg/dL (8.5-10.1); CREATININE 1.2 mg/dL (0.6-1.3); POTASSIUM 3.5 mmol/L (3.5-5.1)
[2020-01-25 07:15] LABS: URINE BILIRUBIN NEGATIVE (Negative); URINE BLOOD 3+ (Negative); URINE CLARITY CLEAR; URINE COLOR YELLOW; URINE GLUCOSE-RANDOM 2+ (Negative); URINE KETONES NEGATIVE (Negative); URINE LEUKOCYTES-REFLEX NEGATIVE (Negative); URINE NITRITE-REFLEX NEGATIVE (Negative); URINE PROTEIN NEGATIVE (Negative); URINE SPECIFIC GRAVITY >= 1.030 (1.005-1.030); URINE UROBILINOGEN 0.2 E.U./dl (0.2-1.0)
[2020-01-25 07:22] LABS: SQUAMOUS 0-3 Few /LPF (0-3); URINE WBC-REFLEX None Seen /HPF (0-5)
[2020-01-25 07:23] LABS: BACTERIA-REFLEX >30 Many /HPF (None Seen); CASTS None Seen /LPF (None Seen); CRYSTALS None Seen /LPF (None Seen); MUCUS None Seen strn/LPF (None Seen); URINE RBC 0-2 Rare /HPF (0-2)
[2020-01-25] MEDS ORDERED: FLOMAX0.4 MG PO (08:04)
[2020-01-25] MEDS ORDERED: ZOFRAN ODT4 MG DISSOLVE (08:04)
[2020-01-25] MEDS ORDERED: NORCO 5-325 TA1 EAC1 PO (08:04)
[2020-01-25 08:23] VITALS: BP 118/65
== END 2020-01-25 08:24 | disposition home or self-care (01) ==
LOC: M.ERS 05:54
PROVIDERS: Emergency Medicine
DX: N20.0 Calculus of kidney (principal); R11.2 Nausea with vomiting, unspecified; E11.9 Type 2 diabetes mellitus without complications; E78.00 Pure hypercholesterolemia, unspecified; M10.9 Gout, unspecified; F17.210 Nicotine dependence, cigarettes, uncomplicated; Z87.442 Personal history of urinary calculi; Z95.5 Presence of coronary angioplasty implant and graft

== ENCOUNTER 2020-12-31 10:02 | Inpatient (IN) | payer OTHER, MEDICAID ==
[~2020-12-31] VITALS: Ht 172.7 cm; Wt 123.3 kg
[~2020-12-31 10:02] MED LIST changes: +FLOMAX0.4 MG PO; +NORCO 5-325 TA1 EAC1 PO; +ZOFRAN ODT4 MG DISSOLVE
[2020-12-31 10:06] VITALS: BP 139/94
[2020-12-31 10:27] LABS: ABSOLUTE BASOPHILS 0.1 thou/uL (0.0-0.2); ABSOLUTE EOSINOPHILS 0.2 thou/uL (0.0-0.7); ABSOLUTE LYMPHOCYTES 1.2 thou/uL (0.8-5.3); ABSOLUTE MONOCYTES 0.7 thou/uL (0.0-1.2); ABSOLUTE NEUTROPHILS 6.7 thou/uL (1.6-8.1); BASOPHILS 1.5 %; EOSINOPHILS 2.6 %; HEMATOCRIT 48.5 % (42.0-52.0); LYMPHOCYTES 13.1 %; MCHC 33.1 g/dL (28.0-37.0); MCV 93.7 fL (80.0-100.0); MONOCYTES 8.2 %; MPV 7.5 fl. (7.2-11.1); NUCLEATED RBCS 0 /100WBC; PLATELET COUNT* 227 thou/uL (150-400); POLYS 74.6 %; RBC 5.18 mil/uL (4.50-6.00); RDW-CV 15.3 % (10.5-14.5)
[2020-12-31 10:37] LABS: CALCIUM 9.2 mg/dL (8.5-10.1); CREATININE 1.2 mg/dL (0.6-1.3); POTASSIUM 4.2 mmol/L (3.5-5.1)
[2020-12-31 10:40] LABS: APTT 29.1 Seconds (25.0-31.3); INR 1.1
[2020-12-31 10:47] LABS: ALBUMIN 3.6 g/dL (3.4-5.0); MAGNESIUM 2.1 mg/dL (1.8-2.4); TOTAL BILIRUBIN 1.1 mg/dL (<0.1-1.0); TOTAL PROTEIN 7.9 g/dL (6.4-8.2)
[2020-12-31 13:00] VITALS: BP 105/71
[2020-12-31 13:15] VITALS: BP 108/72
[2020-12-31 16:00] VITALS: BP 103/65
--- NOTE | 2020-12-31 16:01 | EKG ---
[place] [address] ELECTROCARDIOGRAM REPORT Name: JESSICA KOENIG Room: [address]#: [id number] Admission: 12/31/20 Attend Phys: Caitlyn William MD Discharge: Date of : 64 Date of Service: 12/31/20 [facility] Report #: [id number] THIS REPORT FOR: //name// [facility] ED Test Date: 2020-12-31 Test Time: 10:07:51 Pat Name: JESSICA KOENIG Department: Room: [facility] Gender: M Primer Supervisor: SHARITA : 1960 Requested By: Arsalan Cunningham Order Number: [id number] MD: Yury Eastman Measurements Intervals [place] Rate: 89 P: 66 DE: 179 QRS: 27 QRSD: 109 T: 123 QT: 394 QTc: 480 Interpretive Statements Sinus rhythm Probable left atrial enlargement Delayed R wave progression nonspecific T abnormalities, lateral leads Compared to ECG 02/13/2018 04:29:02 T-wave abnormality now present Electronically Signed On 12-31-2020 16:01:04 CDT by Yury Eastman [email or web address] <ELECTRONICALLY SIGNED> By: Yury Eastman MD, FAC 12/31/20 1601 1007 1007 Yury Eastman MD, [facility] /EPI
[2020-12-31 20:00] VITALS: BP 106/73
[2021-01-01] VITALS (24 sets, daily range): BP systolic 94–116; BP diastolic 53–84
[2021-01-01 04:20] LABS: HEMOGLOBIN 14.7 gm/dL (14.0-18.0); MCH 30.7 pg (26.0-34.0); MCHC 32.6 g/dL (28.0-37.0); MCV 94.1 fL (80.0-100.0); MPV 7.9 fl. (7.2-11.1); RBC 4.78 mil/uL (4.50-6.00); RDW-CV 15.4 % (10.5-14.5); WBC 6.5 thou/uL (4.0-11.0)
[2021-01-01 04:38] LABS: ANION GAP 8 mmol/L (7-16); BUN 19 mg/dL (7-18); CHLORIDE 105 mmol/L (98-107); CHOLESTEROL 162 mg/dL (<200); CO2 27 mmol/L (21-32); CREATININE 1.2 mg/dL (0.6-1.3); GLUCOSE 102 mg/dL (70-99); HDL CHOLESTEROL 23 mg/dL (>40); LDL CHOLESTEROL 120 mg/dL (<100); SODIUM 140 mmol/L (136-145); TRIGLYCERIDE 96 mg/dL (<150); VLDL 19 mg/dL (<40)
[2021-01-01 05:54] LABS: SERUM ASSESSMENT Clear
--- NOTE | 2021-01-01 15:14 | CARD ---
[address] [address] CARDIAC CATH REPORT Name: LIBERTYJESSICA Shiv Room: [address] IN [facility]#: [id number] Admission: 01/01/21 Attend Phys: Caitlyn William MD Discharge: Date of : 64 Report #: [id number] THIS REPORT FOR: cc: FAM - No family physician/PCP FAM - No family physician/PCP Chriss Dutton MD [facility] ~ APPROVED REPORT Study performed: 01/01/2021 10:28:58 Patient Details Patient Status: In-Patient Room #: The patient is a 60 year-old male Event Personnel Chriss Dutton Lay Health Advocate, Lauro Guerra Monitor, Leeroy Cee RN Sales Recruitment Specialist, Shailesh Koehler RTR Scrub Procedures Performed cardiac cath Indication Unstable angina , Cardiomyopathy Risk Factors Hypercholesterolemia, Coronary Artery Disease, Tobacco History () Previous Procedures/Diagnoses Previous PCI Admission/Lab Medications/Medications given during procedure Heparin Low Molecular Weight Procedure Narrative The patient was brought electively to the Cardiac Catheterization Laboratory and was prepped and draped in a sterile manner. The right wrist was infiltrated with 2% Lidocaine subcutaneous anesthesia. IV conscious sedation was used throughout procedure with appropriate monitoring and was performed in the presence of a registered nurse who was an independent trained observer other than the physician performing the procedure. A Jaime Legerth sheath was inserted into the right radial artery. Coronary angiography was performed using coronary diagnostic catheters. The right coronary system was [facility] [address] [place] [address] CARDIAC CATH REPORT Name: JESSICA KOENIG Room: [address] IN [facility]#: [id number] Admission: 01/01/21 Attend Phys: Caitlyn William MD Discharge: Date of : 64 Report #: [id number] accessed and visualized with a JR4 catheter. The left coronary system was accessed and visualized with a JL4 catheter. The left ventricle was accessed and visualized with a PIG Tail catheter. Left ventricular/Aortic Valve gradient assessed via catheter pullback. Left ventriculogram was performed in [place] projection. Closure device was deployed with a 6 Fr vascband. The patient tolerated the procedure well and there were no complications associated with the procedure. There was no hematoma. Intraoperative Conscious Sedation Sedation start time: 1059 Case end Time: 1123 Versed 2 mg Fluoro Time: 2.6 minutes Dose: DAP 57234 cGycm2 1332 mGy Contrast Type and Amount: Visipaque 170 ml Coronary Angiography The patient's coronary anatomy is co- dominant. Diagnostic Cath Left Main 0% stenosis LAD 40% proximal stenosis. Stent that extended from the proximal to mid LAD had a 50% restenosis. Distal LAD had a 50% stenosis Diagonal 1 100% occluded chronically Circumflex Stent in the proximal and mid circumflex had no restenosis. Distal circumflex appeared occluded and filled by bridging collaterals. OM1 100% occluded chronically and filled by bridging collaterals. L HORACIO small vessel with proximal 80% stenosis Right Coronary 80% proximal stenosis. Mid RCA was chronically occluded and filled by retrograde collaterals from the left coronary artery. Left Ventriculography The left ventricular ejection fraction is estimated to be 10-15%. Left ventricular wall motion abnormalities are present. There is no mitral insufficiency. Inferior wall akinesis and severe hypokinesis noted of the anterolateral wall Hemodynamics The aortic pressure is 100/59 mmHg with a mean of 79 mmHg. The left ventricular pressure is 100/10 mmHg with a [place] [address] CARDIAC CATH REPORT Name: LIBERTYJESSICA Shiv Room: [address] IN [facility]#: [id number] Admission: 01/01/21 Attend Phys: Caitlyn William MD Discharge: Date of : 64 Report #: [id number] ventricular end diastolic pressure is 27 mmHg. There was no gradient across the aortic valve upon pullback. Pullback from the left ventricle to the aorta revealed no gradient across the aortic valve. Conclusion 1. 50% restenosis of stents in the LAD 2. no restenosis noted of stents in the circumflex artery, although the distal circumflex appeared chronically occluded and filled by bridging collaterals. 3. chronic occlusion of the mid RCA that filled distally by collaterals from the left coronary. 4. LVEF 10-15% Recommendations Cardiac Rehabilitation Referral Aggressive Medical Therapy <ELECTRONICALLY SIGNED> By: Chriss Dutton MD, [facility] 01/01/21 1514 1514 1514Davishereen Dutton MD, [facility] /INF
[2021-01-02 00:28] VITALS: BP 96/67
[2021-01-02 04:35] LABS: HEMATOCRIT 45.6 % (42.0-52.0); HEMOGLOBIN 14.9 gm/dL (14.0-18.0); MCH 30.5 pg (26.0-34.0); MCHC 32.8 g/dL (28.0-37.0); MCV 93.1 fL (80.0-100.0); MPV 8.1 fl. (7.2-11.1); RBC 4.9 mil/uL (4.50-6.00); RDW-CV 15.4 % (10.5-14.5); WBC 7.9 thou/uL (4.0-11.0)
[2021-01-02 04:59] VITALS: BP 104/59
[2021-01-02 04:59] LABS: CREATININE 1.1 mg/dL (0.6-1.3); POTASSIUM 4.1 mmol/L (3.5-5.1)
[2021-01-02 07:30] VITALS: BP 110/73
[2021-01-02] MEDS ORDERED: NITROGLYCERIN0.4 MG SUBLING (08:29)
[2021-01-02] MEDS ORDERED: IMDUR 30 MG TAB30 M1 PO (08:29)
[2021-01-02] MEDS ORDERED: LIPITOR 40 MG T40 M1 PO (08:29)
[2021-01-02 08:53] VITALS: BP 110/73
--- NOTE | 2021-01-04 15:17 | EKG ---
[place] [address] ELECTROCARDIOGRAM REPORT Name: JESSICA KOENIG Room: [address] DIS IN [facility]#: [id number] Admission: 01/01/21 Attend Phys: Caitlyn William MD Discharge: 01/02/21 Date of : 64 Date of Service: 01/02/21 0349 Report #: [id number] THIS REPORT FOR: //name// [facility] Test Date: 2021-01-02 Test Time: 03:49:36 Pat Name: JESSICA KOENIG Department: Room: [address] Gender: M Line Supervisor: MARTA : 1960 Requested By: Artur Calvin Order Number: [id number] MD: Sekou Ceballos Measurements Intervals [place] Rate: 75 P: 66 MT: 184 QRS: 54 QRSD: 114 T: -58 QT: 420 QTc: 470 Interpretive Statements Sinus rhythm Paired ventricular premature complexes Abnormal lateral Q waves Anterior infarct, old Compared to ECG 12/31/2020 10:07:51 Ventricular premature complex(es) now present Q waves now present Myocardial infarct finding now present Poor R-wave progression persists T-wave abnormality no longer present Electronically Signed On 01-04-2021 15:16:50 CDT by Sekou Ceballos [email or web address] <ELECTRONICALLY SIGNED> By: Sekou Ceballos MD, [facility] 01/04/21 1516 0349 Sekou Ceballos MD, [facility] /EPI
== END 2021-01-02 12:30 | disposition home or self-care (01) | DRG 286 ==
LOC: M.ERS 10:02 → M.TBA-ER 11:03 → M.2W 11:03
PROVIDERS: Emergency Medicine Emergency Medical Services; ADMIT Family Medicine; ATTEND Family Medicine
PROC: 4A023N7 Measurement of Cardiac Sampling and Pressure, Left Heart, Percutaneous Approach (ICD-10-PCS; principal; 2021-01-01)
PROC: B215YZZ Fluoroscopy of Left Heart using Other Contrast (ICD-10-PCS; principal; 2021-01-01)
PROC: B211YZZ Fluoroscopy of Multiple Coronary Arteries using Other Contrast (ICD-10-PCS; principal; 2021-01-01)
DX: T82.855A Stenosis of coronary artery stent, initial encounter (principal); I50.33 Acute on chronic diastolic (congestive) heart failure; Z68.41 Body mass index [BMI] 40.0-44.9, adult; I25.118 Atherosclerotic heart disease of native coronary artery with other forms of angina pectoris; E11.9 Type 2 diabetes mellitus without complications; E78.5 Hyperlipidemia, unspecified; E78.00 Pure hypercholesterolemia, unspecified; M10.9 Gout, unspecified; J44.9 Chronic obstructive pulmonary disease, unspecified; K21.9 Gastro-esophageal reflux disease without esophagitis; G47.33 Obstructive sleep apnea (adult) (pediatric); E66.01 Morbid (severe) obesity due to excess calories; I25.5 Ischemic cardiomyopathy; I11.0 Hypertensive heart disease with heart failure; Y83.8 Other surgical procedures as the cause of abnormal reaction of the patient, or of later complication, without mention of misadventure at the time of the procedure; Z20.822 Contact with and (suspected) exposure to COVID-19; Z95.810 Presence of automatic (implantable) cardiac defibrillator; I25.2 Old myocardial infarction; Z86.711 Personal history of pulmonary embolism; Z79.01 Long term (current) use of anticoagulants; Z79.82 Long term (current) use of aspirin; Z79.899 Other long term (current) drug therapy; Y92.89 Other specified places as the place of occurrence of the external cause

== ENCOUNTER 2021-04-25 20:10 | Inpatient (IN) | payer OTHER, MEDICAID ==
[~2021-04-25] VITALS: Ht 172.7 cm; Wt 119.3 kg
[~2021-04-25 20:10] MED LIST changes: +IMDUR 30 MG TAB30 M1 PO; +LIPITOR 40 MG T40 M1 PO; +NITROGLYCERIN0.4 MG SUBLING
[2021-04-25 20:15] VITALS: BP 117/75
[2021-04-25 20:50] LABS: ABSOLUTE LYMPHOCYTES 0.5 thou/uL (0.8-5.3); ABSOLUTE MONOCYTES 0.7 thou/uL (0.0-1.2); ABSOLUTE NEUTROPHILS 5.5 thou/uL (1.6-8.1); BASOPHILS 0.1 %; EOSINOPHILS 0.1 %; HEMATOCRIT 47.9 % (42.0-52.0); HEMOGLOBIN 15.5 gm/dL (14.0-18.0); LYMPHOCYTES 8.1 %; MCHC 32.4 g/dL (28.0-37.0); MCV 92.3 fL (80.0-100.0); MONOCYTES 10.1 %; MPV 7.9 fl. (7.2-11.1); NUCLEATED RBCS 0 /100WBC; PLATELET COUNT* 221 thou/uL (150-400); POLYS 81.6 %; RBC 5.18 mil/uL (4.50-6.00); RDW-CV 16.9 % (10.5-14.5); WBC 6.7 thou/uL (4.0-11.0)
[2021-04-25 20:54] LABS: CALCIUM 8.9 mg/dL (8.5-10.1); CREATININE 1.4 mg/dL (0.6-1.3); POTASSIUM 4.6 mmol/L (3.5-5.1)
[2021-04-25 21:05] LABS: ALBUMIN 3.9 g/dL (3.4-5.0); MAGNESIUM 2.1 mg/dL (1.8-2.4); TOTAL BILIRUBIN 1.4 mg/dL (<0.1-1.0); TOTAL PROTEIN 8.1 g/dL (6.4-8.2)
[2021-04-26 01:50] VITALS: BP 106/74
[2021-04-26 10:00] VITALS: BP 106/64
--- NOTE | 2021-04-26 10:49 | EKG ---
[place] [address] ELECTROCARDIOGRAM REPORT Name: JESSICA KOENIG Room: [place] [address] ADM IN [facility]#: [id number] Admission: 04/26/21 Attend Phys: Johnnie Mason Discharge: Date of : 64 Date of Service: 04/25/212029 Report #: [id number] THIS REPORT FOR: //name// [facility] ED Test Date: 2021-04-25 Test Time: 20:30:25 Pat Name: JESSICA KOENIG Department: Room: [facility] Gender: M Horticulture Instructor: : 1960 Requested By: Torrie Rogers Order Number: [id number] MD: Chriss Dutton Measurements Intervals [place] Rate: 109 P: 72 FL: 173 QRS: 23 QRSD: 111 T: QT: 340 QTc: 458 Interpretive Statements Sinus tachycardia Multiform ventricular premature complexes Abnormal R-wave progression, late transition Abnormal lateral Q waves Compared to ECG 01/02/2021 03:49:36 Sinus rhythm no longer present Electronically Signed On 04-26-2021 10:49:31 CDT by Chriss Dutton [email or web address] <ELECTRONICALLY SIGNED> By: Chriss Dutton MD, FAC 04/26/21 1049 2030 29 Chriss Dutton MD, [facility] /EPI
[2021-04-26 14:15] VITALS: BP 115/74
[2021-04-26 15:45] VITALS: BP 115/74
--- NOTE | 2021-04-26 17:05 | NUR ---
1600: PATIENT TRANSFERED TO FLOOR FROM ED VIA BED, ACCOMPANIED BY NURSING STAFF. PATIENT ADMITTED FOR CHF, HYPOXIA AND DYSPNEA. IV TO RIGHT FOREARM, PATENT. 95% ON 4L NASAL CANNULA. LUNG SOUNDS DIMINISHED/COARSE, BILATERALLY. ORIENTED TO ROOM AND FLOOR. ALL QUESTIONS AND CONCERNS ADDRESSED.
[2021-04-26 18:10] VITALS: BP 115/75
--- NOTE | 2021-04-26 18:20 | NUR ---
PATIENT RESTING IN BED. 4-5L OXYGEN, NASAL CANNULA. SAT 95%, IV TO RIGHT FOREARM, SALINE LOCKED, PATENT. ALERT AND ORIENTED X4. INDEPENDENT. LUNG SOUNDS DIMINISHED AND COARSE BILATERALLY. SKING INTACT. NO C/O PAIN/DISCOMFORT. BED IN LOW/LOCKED POSITION. CALL LIGHT WITHIN REACH. NO QUESTIONS OR CONCERNS VOICED.
[2021-04-26 19:50] VITALS: BP 134/86
[2021-04-27] VITALS: BP 128/69
[2021-04-27 04:17] VITALS: BP 109/73
--- NOTE | 2021-04-27 04:36 | NUR ---
PT A&O X 4. ON 5L. C/O SOB. PRN ATIVAN GIVEN PER PT REQUEST. TACHY HR 130-150 RR 20-30, DRAWER MAKER NOTIFIED. NEW ORDER RECEIVED. EKG DONE. MEDS GIVEN ORDERED. PT USES URINAL TO VOID. CALL LIGHT WITHIN REACH. WILL CONTINUE TO MONITOR.
[2021-04-27 04:46] LABS: HEMATOCRIT 50.7 % (42.0-52.0); HEMOGLOBIN 16.1 gm/dL (14.0-18.0); MCH 29.9 pg (26.0-34.0); MCHC 31.8 g/dL (28.0-37.0); MCV 94.1 fL (80.0-100.0); MPV 8.2 fl. (7.2-11.1); NUCLEATED RBCS 0 /100WBC; PLATELET COUNT* 205 thou/uL (150-400); RBC 5.39 mil/uL (4.50-6.00); RDW-CV 16.7 % (10.5-14.5); WBC 14.9 thou/uL (4.0-11.0)
[2021-04-27 04:57] LABS: ALBUMIN 3.9 g/dL (3.4-5.0); CALCIUM 9.3 mg/dL (8.5-10.1); POTASSIUM 4.7 mmol/L (3.5-5.1); TOTAL BILIRUBIN 1.8 mg/dL (<0.1-1.0)
[2021-04-27 06:32] LABS: ABSOLUTE LYMPHOCYTES 1.3 thou/uL (0.8-5.3); ABSOLUTE MONOCYTES 0.4 thou/uL (0.0-1.2); ABSOLUTE NEUTROPHILS 13.1 thou/uL (1.6-8.1); ATYPICAL LYMPHS 2 %; PLATELET ESTIMATE ADEQUATE
[2021-04-27 08:17] VITALS: BP 91/57
--- NOTE | 2021-04-27 09:35 | NUR ---
ASSUMED CARE OF PT THIS AM AROUND 0715- ASSET PROTECTION MANAGER IN PLACE ORDERED, TRACING SR- UPON ASSESSMENT PT NOTED TO BE RESTING IN BED- PT A&O X4- CONT OF B/B- UP AD-CARLTON IN ROOM FOR SHORT DISTANCES- DIMINISHED UPPER LOBES, COURSE LOWER LOBES- REPORTS PRODUCTIVE GREEN SPUTUM, WITH WET COUGH- VSS, O2 SAT 97% ON 5L VIA NC-DYSPNEA NOTED WITH EXERTION- ABD SOFT/ROUND/NON-TENDER, BS X4 QUADS- LAST BM REPORTED 04/26/21- IV NOTED TO RIGHT HAND INTACT AND SL- IV ABT GIVEN THIS AM PRESCRIBED- +1 BLE EDEMA NOTED, LEG ELEVATION ENCOURAGED- GOOD PO INTAKE NOTED THIS AM WITH BREAKFAST- DENIES ANY C/O PAIN- CALL LIGHT AND PERSONAL BELONGINGS WITH IN REACH- ALL NEEDS MET AT THIS TIME
--- NOTE | 2021-04-27 10:13 | EKG ---
[place] [address] ELECTROCARDIOGRAM REPORT Name: LIBERTYJESSICA Chaney Room: [address] ADM IN [facility]#: [id number] Admission: 04/26/21 Attend Phys: Johnnie Mason Discharge: Date of : 64 Date of Service: 04/26/212150 Report #: [id number] THIS REPORT FOR: //name// [facility] Test Date: 2021-04-26 Test Time: 21:51:06 Pat Name: JESSICA KOENIG Department: Room: [address] Gender: M Counseling Program Leader: [email or web address] : 1960 Requested By: Johnnie Mason Order Number: [id number] MD: Chriss Dutton Measurements Intervals [place] Rate: 142 P: 53 IA: 157 QRS: 10 QRSD: 114 T: 97 QT: 347 QTc: 534 Interpretive Statements Sinus tachycardia Paired ventricular premature complexes Probable lateral infarct, age indeterminate Prolonged QT interval Baseline wander in lead(s) V1 Compared to ECG 04/25/2021 20:30:25 Prolonged QT interval now present Electronically Signed On 04-27-2021 10:13:42 CDT by Chriss Dutton [email or web address] <ELECTRONICALLY SIGNED> By: Chriss Dutton MD, FACC 04/27/21 1013 50 50 Chriss Dutton MD, [facility] /EPI
[2021-04-27 12:29] VITALS: BP 95/49
--- NOTE | 2021-04-27 15:02 | NUR ---
FREDDIE SPK WITH PT TO COMPLETE ASSESSMENT. PT LIVES AT HOME WITH HIS S/O. PT IS INDEPENDENT WITH ADLS, PT DRIVES A VEHICLE. PT USE NEBULIZER WITH NC. PT HAS HX WITH ARU. PT DENIES HX WITH HH. PT WILL NEED EXERCISE OXIMETRY AT D/C TO DETERMINE O2 NEEDS.
[2021-04-27 16:00] VITALS: BP 96/59
--- NOTE | 2021-04-27 16:00 | 2DMMODE ---
[place] [address] 2 D/M-MODE ECHOCARDIOGRAM Name: ANIRenanJESSICA Shiv Room: [address] IN [facility]#: [id number] Admission: 04/26/21 Attend Phys: Johnnie Mason Discharge: Date of : 64 Date of Service: 04/27/21 1600 Report #: [id number] THIS REPORT FOR: cc: Chriss Dutton MD [facility]ITAL[facility]riss Xie MD [facility]ITAL[facility]ury Lugo MD [facility] ~ APPROVED REPORT Study performed: 04/27/2021 11:18:01 EXAM: Comprehensive 2D, Doppler, and color-flow Echocardiogram Patient Location: In-Patient Room #: [facility] Status: routine BSA: 2.28 HR: 82 bpm BP: 91/57 mmHg Rhythm: NSR Other Information Study Quality: Good Indications Dyspnea 2D Dimensions IVSd: 13.33 (7-11mm) LVOT Diam: 19.63 (18-24mm) LVDd: 65.59 mm PWd: 10.64 (7-11mm) Ascending Ao: 33.22 (22-36mm) LVDs: 62.30 (25-40mm) Aortic Root: 30.56 mm Volumes Left Atrial Volume (Systole) LA ESV Index: 40.10 mL/m2 Aortic Valve AoV Peak Tony.: 1.03 m/s AO Peak Gr.: 4.24 mmHg LVOT Max P.33 mmHg AO Mean Gr.: 2.54 mmHg LVOT Mean P.60 mmHg LVOT Max V: 0.58 m/s AO V2 VTI: 16.19 cm LVOT Mean V: 0.35 m/s ALEX (VTI): 1.54 cm2 LVOT V1 VTI: 8.22 [place] [address] 2 D/M-MODE ECHOCARDIOGRAM Name: JESSICA KOENIG Room: [address] IN [facility]#: [id number] Admission: 04/26/21 Attend Phys: Johnnie Mason Discharge: Date of : 64 Date of Service: 04/27/21 1600 Report #: [id number] Mitral Valve E/A Ratio: 1.24 MV Decel. Time: 122.24 ms MV E Max Tony.: 0.83 m/s MV PHT: 35.45 ms MVA (PHT): 6.21 cm2 TDI E/Lateral E': 11.86 E/Medial E': 13.83 Medial E' Tony.: 0.06 m/s Lateral E' Tony.: 0.07 m/s Pulmonary Valve PV Peak Tony.: 0.76 m/s PV Peak Gr.: 2.33 mmHg Tricuspid Valve RAP Estimate: 5.00 mmHg TR Peak Gr.: 44.86 mmHg RVSP: 49.00 mmHg PA Pressure: 49.00 mmHg Left Ventricle Left ventricle is moderately dilated. There is severe global hypokinesis of the left ventricle. Mild concentric left ventricular hypertrophy. Left ventricular systolic function is severely decreased. LVEF is 20%. Transmitral Doppler flow pattern suggests restrictive physiology. Right Ventricle Right ventricle is moderately dilated. The right ventricular systolic function is normal. Device lead is present in the right ventricle. Atria Left atrium is mildly dilated. Right atrium is mildly dilated. Aortic Valve Mild aortic valve sclerosis. No aortic regurgitation is present. Mild aortic stenosis. Mitral Valve There is mitral annular calcification. Mild mitral regurgitation. No evidence of mitral valve stenosis. Tricuspid Valve The tricuspid valve is normal in structure. Mild tricuspid regurgitation. The RVSP is estimated to be 70 [place] [address] 2 D/M-MODE ECHOCARDIOGRAM Name: JESSICA KOENIG Room: [address]#: [id number] Admission: 04/26/21 Attend Phys: Johnnie Mason Discharge: Date of : 64 Date of Service: 04/27/21 1600 Report #: [id number] Pulmonic Valve The pulmonary valve is normal in structure. There is no pulmonic valvular regurgitation. Great Vessels The aortic root is normal in size. IVC is dilated and collapses <50% with inspiration. Pericardium There is no pericardial effusion. <Conclusion> Left ventricle is moderately dilated. Mild concentric left ventricular hypertrophy. Left ventricular systolic function is severely decreased. LVEF is 20%. Transmitral Doppler flow pattern suggests restrictive physiology. There is severe global hypokinesis of the left ventricle. Left atrium is mildly dilated. Right atrium is mildly dilated. Right ventricle is moderately dilated. Device lead is present in the right ventricle. Mild mitral regurgitation. Mild tricuspid regurgitation. The RVSP is estimated to be 70 mmHg. IVC is dilated and collapses <50% with inspiration. <ELECTRONICALLY SIGNED> By: Yury Eastman MD, FACC 04/27/211599 99 99 Yury Eastman MD, FACC /INF
[2021-04-27 16:27] LABS: DIRECT BILIRUBIN 0.8 mg/dL (<0.1-0.3); TOTAL BILIRUBIN 1.4 mg/dL (<0.1-1.0)
[2021-04-27 20:00] VITALS: BP 120/73
[2021-04-28 02:15] VITALS: BP 96/56
[2021-04-28 05:04] LABS: ABSOLUTE LYMPHOCYTES 0.4 thou/uL (0.8-5.3); ABSOLUTE MONOCYTES 0.2 thou/uL (0.0-1.2); ABSOLUTE NEUTROPHILS 4.2 thou/uL (1.6-8.1); BASOPHILS 0.3 %; HEMATOCRIT 44.2 % (42.0-52.0); HEMOGLOBIN 14.5 gm/dL (14.0-18.0); MCH 30.3 pg (26.0-34.0); MCHC 32.9 g/dL (28.0-37.0); MCV 92.2 fL (80.0-100.0); MONOCYTES 3.2 %; MPV 8.4 fl. (7.2-11.1); NUCLEATED RBCS 0 /100WBC; PLATELET COUNT* 151 thou/uL (150-400); POLYS 88.5 %; RBC 4.79 mil/uL (4.50-6.00); RDW-CV 16.5 % (10.5-14.5); WBC 4.8 thou/uL (4.0-11.0)
[2021-04-28 05:16] LABS: ALBUMIN 3.2 g/dL (3.4-5.0); CALCIUM 8.5 mg/dL (8.5-10.1); CREATININE 1.4 mg/dL (0.6-1.3); TOTAL BILIRUBIN 1.2 mg/dL (<0.1-1.0); TOTAL PROTEIN 6.8 g/dL (6.4-8.2)
[2021-04-28 05:27] VITALS: BP 92/64
[2021-04-28 08:00] VITALS: BP 130/75
[2021-04-28 12:00] VITALS: BP 96/59
--- NOTE | 2021-04-28 12:32 | NUR ---
PLAN OF CARE: PHYSICIAN INFORMS OF PLAN FOR THE PT TO POSSIBLY D/C TOMORROW. PT WILL LIKELY NEED R.T. REST AND EXERCISE TESTING, AND THE PT IS CURRENTLY ON 3L O2 AND DID NOT HAVE HOME O2 PRIOR TO ADMIT. CM WILL REMAIN AVAILABLE TO ASSIST AND FOLLOW NEEDED.
[2021-04-28 16:00] VITALS: BP 125/76
[2021-04-28 20:40] VITALS: BP 144/85
[2021-04-29] VITALS (7 sets, daily range): BP systolic 88–150; BP diastolic 48–97
--- NOTE | 2021-04-29 06:54 | NUR ---
Alert and oriented x 4. He sits up in the bed. He has used the urinal. Vitals are stable. His O2 sat is 96-97% on 3L n/c. He has been SR with PVC's on the monitor. Lorazapam was given at bedtime and he did sleep a few hours. Will continue to monitor.
[2021-04-29 08:20] LABS: ABSOLUTE BASOPHILS 0.1 thou/uL (0.0-0.2); ABSOLUTE LYMPHOCYTES 0.4 thou/uL (0.8-5.3); ABSOLUTE MONOCYTES 0.4 thou/uL (0.0-1.2); ABSOLUTE NEUTROPHILS 7.8 thou/uL (1.6-8.1); BASOPHILS 0.7 %; HEMATOCRIT 47.6 % (42.0-52.0); HEMOGLOBIN 15.6 gm/dL (14.0-18.0); LYMPHOCYTES 4.1 %; MCH 30.1 pg (26.0-34.0); MCHC 32.7 g/dL (28.0-37.0); MCV 92.1 fL (80.0-100.0); MONOCYTES 4.6 %; MPV 8.1 fl. (7.2-11.1); NUCLEATED RBCS 0 /100WBC; PLATELET COUNT* 169 thou/uL (150-400); POLYS 90.6 %; RBC 5.17 mil/uL (4.50-6.00); RDW-CV 16.6 % (10.5-14.5); WBC 8.6 thou/uL (4.0-11.0)
[2021-04-29 08:33] LABS: ALBUMIN 3.4 g/dL (3.4-5.0); CALCIUM 9.1 mg/dL (8.5-10.1); CREATININE 1.3 mg/dL (0.6-1.3); POTASSIUM 4.3 mmol/L (3.5-5.1); TOTAL PROTEIN 7.4 g/dL (6.4-8.2)
--- NOTE | 2021-04-29 11:44 | NUR ---
Nutrition: Pt admitted with SOB. Seen for high BMI. Wt: 263#, BMI 40. Pt said that he has been losing wt d/t less of an appetite. "I used to pig out at a buffet, but now only eat one plate of food." Wt prior was 280#, and pt has gradually lost wt over years. He said he wasn't necessarily trying to lose wt, but he is just eating less d/t less of an appetite. He is not "as active as I should be." He is eating well in hospital. BG 198, albumin 3.4. PMHx: gout, HTN, OBE, HLD, CAD. We discussed one plate of food is probably all he needs at meal times and I encouraged him to continue with his wt loss, eating a healthy diet. Low nutrition risk at this time.
[2021-04-29] MEDS ORDERED: PACERONE 200 M200 M1 PO ×2 (11:51→12:56)
[2021-04-29] MEDS ORDERED: CEFDINIR300 MG PO (11:51)
[2021-04-29] MEDS ORDERED: PREDNISONE 10 M10 MG PO (11:51)
[2021-04-29] MEDS ORDERED: METFORMIN HCL500 M3 PO (11:51)
[2021-04-29] MEDS ORDERED: JARDIANCE10 MG PO (12:57)
[2021-04-29] MEDS ORDERED: FUROSEMIDE 40 M40 MG PO (12:59)
--- NOTE | 2021-04-29 17:05 | NUR ---
PLAN FOR PT D/C HOME WITH HOME OXYGEN TODAY. [facility] DELIVERED OXYGEN TANK. APRIA TO INFORM PT OF PREVIOUS BALANCE OWED BY PT. CM WILL REMAIN AVAILABLE TO ASSIST AND FOLLOW NEEDED.
[2021-04-30 07:09] LABS: GLYCOHEMOGLOBIN (HGB A1C) 6.3 % (4.8-5.6)
== END 2021-04-29 18:23 | disposition home health service (06) | DRG 177 ==
LOC: M.ERS 20:10 → M.TBA-ER 21:53 → M.2W 04-26 16:06
PROVIDERS: Emergency Medicine; ADMIT Internal Medicine; ATTEND Internal Medicine
DX: J15.6 Pneumonia due to other Gram-negative bacteria (principal); I50.43 Acute on chronic combined systolic (congestive) and diastolic (congestive) heart failure; N17.0 Acute kidney failure with tubular necrosis; J96.21 Acute and chronic respiratory failure with hypoxia; J44.1 Chronic obstructive pulmonary disease with (acute) exacerbation; Z68.41 Body mass index [BMI] 40.0-44.9, adult; J44.0 Chronic obstructive pulmonary disease with (acute) lower respiratory infection; Z20.822 Contact with and (suspected) exposure to COVID-19; E78.5 Hyperlipidemia, unspecified; E78.00 Pure hypercholesterolemia, unspecified; M10.9 Gout, unspecified; E11.9 Type 2 diabetes mellitus without complications; E66.01 Morbid (severe) obesity due to excess calories; I11.0 Hypertensive heart disease with heart failure; I25.5 Ischemic cardiomyopathy; I25.10 Atherosclerotic heart disease of native coronary artery without angina pectoris; D72.829 Elevated white blood cell count, unspecified; I27.20 Pulmonary hypertension, unspecified; Z86.711 Personal history of pulmonary embolism; I25.2 Old myocardial infarction; Z95.0 Presence of cardiac pacemaker; Z95.5 Presence of coronary angioplasty implant and graft; Z87.891 Personal history of nicotine dependence; Z87.442 Personal history of urinary calculi; Z79.2 Long term (current) use of antibiotics